=== PATIENT | female | born 1955 | race Caucasian/White ===

== ENCOUNTER 2017-06-23 09:57 | Day surgery (SDC) | payer BC ==
[2017-06-22 09:34] VITALS: BMI 21.1
[~2017-06-23 09:57] MED LIST: LACTATED RINGERS 1,000 ML IV SCH; LIDOCAINE 1% 20 ML VIAL (10MG/ML) FOR IV START INTRADERMA PRN
[2017-06-23 10:19] VITALS: TEMP 98
[2017-06-23] MEDS ORDERED: LACTATED RINGERS 1,000 ML IV ONE (10:27)
[2017-06-23] MEDS ORDERED: PROPOFOL 10 MG/ML 20 ML VIAL IV ONE (11:15)
--- NOTE | 2017-06-23 11:47 | P.PCN ---
Date of Procedure: 06/23/17 Preoperative Diagnosis: Postoperative Diagnosis: Procedure(s) Performed: Procedure: Colonoscopy and polypectomy. Preoperative diagnosis: Screening for neoplasia. Postoperative diagnosis: Multiple small polyps snared but no large polyps or cancer. Preparation: HalfLytely prep. Sedation: Was provided by anesthesia. Brief clinical history: The patient is a 62-year-old female who is referred for this evaluation for screening for neoplasia age being her risk factor. She had an exam more than 10 years ago. At this time, she has no abdominal complaints, bleeding or anemia. Procedure: With the patient on her left lateral decubitus position and after informed consent and adequate sedation, the perianal area was inspected and it did not show any fissures or fistulas. There were no masses felt on digital rectal examination. The Olympus CFQ 160L video colonoscope was then inserted in the rectum in the usual fashion and advanced to the cecum. There were 4 small polyps noted two around the hepatic flexure and two in the proximal right colon which were snared and retrieved by suction. No large polyps or cancer. No obvious diverticular disease or other pathology. I retroflexed the endoscope in the rectum before the endoscope was withdrawn. The patient tolerated the procedure well. Plan: The patient was reassured. Will await pathology results. I anticipate repeating this exam in 3-5 years. She will follow-up with you as planned. Implants: Indications for Procedure: Operative Findings: Description of Procedure:
[2017-06-23 11:53] VITALS: RESP 16
[2017-06-23 12:18] VITALS: BP 124/81; PULSE 61
== END 2017-06-23 12:14 | disposition home or self-care (01) ==
LOC: ORWHC2ENDO 09:57 → MERGE 12:20
DX: Z12.11 Encounter for screening for malignant neoplasm of colon (principal); D12.3 Benign neoplasm of transverse colon; Z86.718 Personal history of other venous thrombosis and embolism; J45.909 Unspecified asthma, uncomplicated; Z87.891 Personal history of nicotine dependence; E07.9 Disorder of thyroid, unspecified
CPT/HCPCS: 88305; 45385; J2704

== ENCOUNTER 2022-01-02 05:51 | Day surgery (SDC) | payer BC, MEDICARE ==
[2021-12-26 12:22] VITALS: BMI 21.4
--- NOTE | 2022-01-01 09:12 | P.HPIHPCON ---
History of Present Illness H&P Date: 01/01/22 Chief Complaint: pelvic organ prolapse This is a 66 yo female with hx of stage III rectocele option of observation, vaginal repair, and a robotic sacralcolpopexy was discussed with her in detail. Discussed with her the risk and benefit of each approach. She agreed to pr oceed with a robotic sacral colpopexy. Discussed with her we would be using mesh, discussed the risk which includes but not limited to bleeding, infection, mesh erosion through the vagina, bladder, and rectum, potential of recurrence of the cystocele, and persistent symptoms. discussed the risk of stress urinary incontinence postoperatively.Discussed also with her risk from anesthesia. She understood all the risk and agreed to proceed with robotic sacral colpopexy Consent for Procedure: I have explained the operation/procedure to the patient, including the risks, b enefits, side effects, alternative therapies (including not receiving the proposed treatment or service), the likelihood of the patient achieving his/her goals, and potential recuperation problems for the procedure/sedation/analgesia, as well as any blood products, if indicated. I also explained to the patient the risks, benefits and side effects of the alternatives, as well as the risks related to not receiving the proposed procedure, care, treatment, or services. Past Medical History Past Medical History: Asthma, Deep Vein Thrombosis (DVT), Thyroid Disorder Additional Past Medical History / Comment(s): CHILDHOOD ASTHMA, HX DVT LEFT LEG (12-13 YRS AGO)., PT STATES BLADDER & RECTUM PROLAPSE. History of Any Multi-Drug Resistant Organisms: None Reported Past Surgical History: Appendectomy, Tonsillectomy, Tubal Ligation Additional Past Surgical History / Comment(s): OVARIAN CYST. Past Anesthesia/Blood Transfusion Reactions: No Reported Reaction Past Psychological History: No Psychological Hx Reported Smoking Status: Current every day smoker Past Alcohol Use History: Daily Additional Past Alcohol Use History / Comment(s): SMOKES 1 PPD., STARTED SMOKING AT AGE 18. QUIT ALCOHOL OCTOBER 2021 Past Drug Use History: None Reported - Past Family History Mother Family Medical History: No Reported History Medications and Allergies Home Medications Medication Instructions Recorded Confirmed Type Levothyroxine Sodium [Synthroid] 100 mcg PO DAILY 06/22/17 12/26/21 History Allergies Allergy/AdvReac Type Severity Reaction Status Date / Time No Known Allergies Allergy Verified 06/22/17 09:12 Surgical - Exam - General no distress, no pain - Eyes normal ocular movement - ENT normal nares, normal mucosa - Respiratory normal expansion, normal respiratory effort - Abdomen Abdomen: soft, non tender - Psychiatric oriented to time, oriented to person, oriented to place Assessment and Plan Assessment: -OR robotic Sacrocolpoexy with combined hysterctomy by DOG WARDEN
--- NOTE | 2022-01-01 17:51 | P.HPOB ---
History of Present Illness H&P Date: 01/01/22 Chief Complaint: prolapse 66 year old presents for [facility] BSO by myself and sacrocolpopexy with dr Holly. Review of Systems All systems: negative Constitutional: Denies chills, Denies fever Eyes: denies blurred vision, denies pain Ears, nose, mouth and throat: Denies headache, Denies sore throat Cardiovascular: Denies chest pain, Denies shortness of breath Respiratory: Denies cough Gastrointestinal: Denies abdominal pain, Denies diarrhea, Denies nausea, Denies vomiting Genitourinary: Denies dysuria, Denies hematuria Musculoskeletal: Denies myalgias Integumentary: Denies pruritus, Denies rash Neurological: Denies numbness, Denies weakness Psychiatric: Denies anxiety, Denies depression Endocrine: Denies fatigue, Denies weight change Past Medical History Past Medical History: Asthma, Deep Vein Thrombosis (DVT), Thyroid Disorder Additional Past Medical History / Comment(s): CHILDHOOD ASTHMA, HX DVT LEFT LEG (12-13 YRS AGO)., PT STATES BLADDER & RECTUM PROLAPSE. History of Any Multi-Drug Resistant Organisms: None Reported Past Surgical History: Appendectomy, Tonsillectomy, Tubal Ligation Additional Past Surgical History / Comment(s): OVARIAN CYST. Past Anesthesia/Blood Transfusion Reactions: No Reported Reaction Past Psychological History: No Psychological Hx Reported Smoking Status: Current every day smoker Past Alcohol Use History: Daily Additional Past Alcohol Use History / Comment(s): SMOKES 1 PPD., STARTED SMOKING AT AGE 18. QUIT ALCOHOL OCTOBER 2021 Past Drug Use History: None Reported - Past Family History Mother Family Medical History: No Reported History Medications and Allergies Home Medications Medication Instructions Recorded Confirmed Type Levothyroxine Sodium [Synthroid] 100 mcg PO DAILY 06/22/17 12/26/21 History Allergies Allergy/AdvReac Type Severity Reaction Status Date / Time No Known Allergies Allergy Verified 06/22/17 09:12 Exam Osteopathic Statement: *. No significant issues noted on an osteopathic structural exam other than those noted in the History and Physical/Consult. Heart: Regular rate and rhythm Lungs: Clear to auscultation bilaterally Abdomen: Soft, nontender Extremities: Negative Homans sign Assessment and Plan (1) Pelvic organ prolapse quantification stage 3 cystocele Status: Acute Code(s): N81.10 - CYSTOCELE, UNSPECIFIED SNOMED Code(s): 396105384 Plan: 1. TLH BSO with da rayshawn. Will undergo prolapse procedure with Dr Holly when my portion is complete.
[~2022-01-02 05:51] MED LIST changes: +DEXAMETHASONE SOD PHOSPHATE 4 MG/ML 1 ML VIAL IV ONE; +HEPARIN SODIUM,PORCINE/PF 5,000 UNIT/0.5 ML SYRINGE SQ PRN; -LACTATED RINGERS 1,000 ML IV SCH; +LIDOCAINE 1% (10MG/ML) FOR IV START INTRADERMA PRN; -LIDOCAINE 1% 20 ML VIAL (10MG/ML) FOR IV START INTRADERMA PRN; +MIDAZOLAM 2 MG/2 ML VIAL IV PRN; +ONDANSETRON 4 MG/2 ML VIAL IVP ONE
[2022-01-02] MEDS: LACTATED RINGERS 1,000 ML IV SCH (06:21)
[2022-01-02] MEDS ORDERED: LIDOCAINE 1% INJ 10MG/ML (20 ML MDV) ONE ×2 (06:29→07:35)
[2022-01-02] MEDS ORDERED: fentaNYL (PF) 50 MCG/ML 2 ML AMP IVP ONE (07:13)
[2022-01-02] MEDS ORDERED: MIDAZOLAM 2 MG/2 ML VIAL IVP ONE (07:13)
[2022-01-02] MEDS ORDERED: GLYCOPYRROLATE 0.2 MG/ML 2 ML VIAL ONE (07:35)
[2022-01-02] MEDS ORDERED: SUCCINYLCHOLINE CHLORIDE 100 MG/5 ML SYR IV ONE (07:35)
[2022-01-02] MEDS ORDERED: PHENYLEPHRINE-0.9% NACL SYG 1,000 MCG/10 ML SYRINGE ONE (07:35)
[2022-01-02] MEDS ORDERED: fentaNYL (PF) 50 MCG/ML 2 ML AMP ONE (07:35)
[2022-01-02] MEDS ORDERED: NEOSTIGMINE 1 MG/ML 10 ML VIAL ONE (07:35)
[2022-01-02] MEDS ORDERED: MIDAZOLAM 2 MG/2 ML VIAL ONE (07:35)
[2022-01-02] MEDS ORDERED: PROPOFOL 10 MG/ML 20 ML VIAL IV ONE (07:35)
[2022-01-02] MEDS ORDERED: HYDROmorphone (PF) 1 MG/ML ONE (07:35)
[2022-01-02] MEDS ORDERED: ROCURONIUM 10 MG/ML (5 ML VIAL) IV ONE (07:35)
[2022-01-02] MEDS ORDERED: LACTATED RINGERS 1,000 ML IV ONE ×2 (07:42→10:30)
[2022-01-02] MEDS ORDERED: BUPIVACAINE (PF) 0.5% 30 ML VIAL SQ ONE ×2 (07:59→11:17)
--- NOTE | 2022-01-02 09:31 | P.ANPRN ---
Procedure Note - Anesthesia - Nerve Block Performed Bilateral Erector Spinae Single Time Out Performed: Yes (0712) Date of Procedure: 01/02/22 Procedure Start Time: 07:13 Procedure Stop Time: 07:18 Location of Patient: Phase I Indication: Acute Post-Operative Pain, Requested by Surgeon Specifically requested for management of pain by DrArlene: Linda Lin Sedation Type: Sedate with meaningful contact maintained Preparation: Sterile Prep Position: Prone Catheter: None Needle Types: Pajunk Needle Gauge: 21 (100mm) Ultrasound used to visualize needle placement: Yes Ultrasound used to observe medication spread: Yes Injectate: 0.5% Ropivacaine (see comment for volume) (15cc + 15cc nacl pf) Blood Aspirated: No Pain Paresthesia on Injection Noted: No Resistance on Injection: Normal Image Stored and Saved: Yes Events: Uneventful and Well Tolerated
--- NOTE | 2022-01-02 10:41 | P.OP ---
Date of Procedure: 01/02/22 Preoperative Diagnosis: 1. pelvic organ prolapse Postoperative Diagnosis: 1. pelvic organ prolapse Procedure(s) Performed: Total laparoscopic hysterectomy and bilateral salpingo-oophorectomy using da Tanika Anesthesia: ANN Surgeon: Linda Lin Radio Message Router #1: Adriane Celis Estimated Blood Loss (ml): 50 IV fluids (ml): 1,000 Urine output (ml): 200 Pathology: other (Uterus, cervix, bilateral tubes and ovaries) Condition: stable Description of Procedure: Patient taken the operating room where general anesthesia was obtained without difficulty. She is prepped and draped in normal sterile fashion dorsal lithotomy position, legs placed in the Po stirrups. Weighted speculum placed in the vagina and the anterior lip the cervix was grasped with single-tooth tenaculum. The uterus sounded to 6 cm and the cervix diameter was 3 cm. The appropriate manipulator tip and ring were placed on the Abigail manipulator. The Abigail manipulator was then placed in the uterus. Perez catheter was also placed. Attention was then turned to the abdomen and gloves were changed. A 5 mm supraumbilical incision was made the scalpel and a 5 mm optical trocar was placed under direct visualization. 10 cm to the right of this and 2 cm down a 5 mm incision was made and 8 mm da Tanika port was placed under direct visualization. Same measurements on the opposite side of the patient's abdomen, the 5 mm incision was made and 8 mm da Tanika port was placed under direct visualization. In the left upper quadrant a 10 mm incision was made and a 10 mm optical trocar was placed under direct visualization. The 5 mm optical trocar was then replaced with the 8 mm da Tanika camera port. The robot was docked on patient's right side. The camera was introduced and then the monopolar curved scissor and [place] bipolar placed under direct visualization. I broke scrub and went to the physician console. The left infundibulopelvic ligament was cauterized with the [place] bipolar and cut with monopolar curved scissors. The left round ligament was cauterized with the [place] bipolar and cut with monopolar curved scissors. The posterior leaf of the broad ligament was taken down using the monopolar curved scissors. Anterior leaf of the broad ligament was then taken down using the monopolar curved scissors. The uterine artery was cauterized with the [place] bipolar and cut with monopolar curved scissors. The bladder flap was then started using the monopolar curved scissors. Attention was then turned to the right side of the patient's anatomy and the right infundibular pelvic ligament was cauterized with the [place] bipolar and cut with monopolar curved scissors. The right round ligament was cauterized with the [place] bipolar and cut with monopolar curved scissors. Posterior leaf of the broad ligament was taken down using the monopolar curved scissors and the anterior leaf was taken down using the monopolar curved scissors. The uterine artery was cauterized the [place] bipolar cut with monopolar curved scissors. The bladder flap was then finished on this side. Anterior colpotomy was made using the monopolar curved scissors. The rest of the uterus was from the vaginal cuff by following the ring around with the monopolar curved scissors through the uterosacral ligaments back to the anterior portion. Once the uterus and cervix were amputated they were pulled through the vaginal cuff. Hemostasis was assured. The instruments were changed for the Cardier forcep and the pushpa suture cut. The vaginal cuff was then closed using 2-O stratafix barbed suture in a running fashion. Hemostasis was again assured and the pelvis was irrigated. I then turned the case over to Dr. Holly who plans to do a sacral colpopexy. Patient with in stable condition on I left the room.
[2022-01-02] MEDS: HYDROmorphone 0.5 MG/0.5 ML SYRINGE IVP PRN ×2 (11:40→11:50)
[2022-01-02] MEDS: LEVOTHYROXINE 100 MCG TAB PO SCH (13:25)
[2022-01-02] MEDS: KETOROLAC 30 MG/ML 1 ML VIAL IVP SCH ×2 (13:36→20:28)
[2022-01-02] MEDS: D5-0.45% NACL WITH KCL 20MEQ/L 1,000 ML IV SCH ×3 (14:28→22:34)
[2022-01-02 23:05] VITALS: RESP 16
[2022-01-03] MEDS: KETOROLAC 30 MG/ML 1 ML VIAL IVP SCH ×2 (03:17→05:40)
--- NOTE | 2022-01-03 07:44 | P.DS ---
Providers Expected date of discharge: 01/03/22 Attending physician: Linda Lin Primary care physician: Triston Lord - Discharge Diagnosis(es) (1) Pelvic organ prolapse quantification stage 3 cystocele Current Visit: No Status: Resolved (2) Status post robot-assisted surgical procedure Current Visit: Yes Status: Acute Hospital Course: Patient was suffering from pelvic organ prolapse. She underwent a total laparoscopic hysterectomy with bilateral salpingo-oophorectomy using da Tanika by myself, and then a sacral colpopexy by Dr. Holly. Postoperatively her course was uncomplicated. She denies nausea, vomiting, chest pain, shortness of breath or calf pain. She is voiding and moving without difficulty and tolerating regular diet. Patient will be discharged home post operative day #1 in stable condition to follow-up with me in 3 weeks. Plan - Discharge Summary New Discharge Prescriptions: New Acetaminophen-Codeine 300-30mg [Tylenol #3] 1 - 2 tab PO Q6H PRN #20 tablet PRN Reason: Pain Ibuprofen [Motrin] 600 mg PO Q6HR PRN #40 tab PRN Reason: Mild Pain Or Fever >= 100.5 No Action Levothyroxine Sodium [Synthroid] 100 mcg PO DAILY Cephalexin [Keflex] 500 mg PO Q12HR Discharge Medication List Levothyroxine Sodium [Synthroid] 100 mcg PO DAILY 06/22/17 [History] Cephalexin [Keflex] 500 mg PO Q12HR 01/02/22 [History] Acetaminophen-Codeine 300-30mg [Tylenol #3] 1 - 2 tab PO Q6H PRN #20 tablet 01/03/22 [Rx] Ibuprofen [Motrin] 600 mg PO Q6HR PRN #40 tab 01/03/22 [Rx] Discharge Disposition: HOME SELF-CARE
[2022-01-03] MEDS: LEVOTHYROXINE 100 MCG TAB PO SCH (08:21)
[2022-01-03 08:23] VITALS: BP 115/63; PULSE 63; TEMP 98.3
[2022-01-03] MEDS: LACTATED RINGERS 1,000 ML IV SCH (08:26)
--- NOTE | 2022-01-03 09:48 | P.PN ---
Subjective Progress Note Date: 01/03/22 Principal diagnosis: POD #1, s/p robotic-assisted laparoscopic hysterectomy and BSO with sacral colpopexy The patient underwent an uncomplicated sacral colpopexy yesterday at the time of her robotic hysterectomy. She reports incisional discomfort this morning but is otherwise doing well. She is afebrile with stable vital signs. Her Perez catheter was removed, and she has voided without difficulty. Objective - Vital Signs Vital signs: Vital Signs Temp 99.3 F 01/02/22 23:04 Pulse 83 01/02/22 23:04 Resp 16 01/02/22 23:04 BP 98/54 01/02/22 23:04 Pulse Ox 93 L 01/02/22 23:04 Intake & Output 01/02/22 01/02/22 01/03/22 06:59 18:59 06:59 Intake Total 800 2050 500 Output Total 350 Balance 800 1700 500 Weight 69.9 kg 69.9 kg Intake: IV 800 2050 Oral 500 Output: Urine 300 Estimated Blood Loss 50 Other: Voiding Method Indwelling Catheter # Voids 0 - Constitutional General appearance: Present: average body habitus, cooperative - Gastrointestinal Gastrointestinal Comment(s): Soft, non-distended. Incisions clean and dry. - Psychiatric Psychiatric: Present: A&O x's 3, appropriate affect Assessment and Plan (1) Pelvic organ prolapse quantification stage 3 cystocele Current Visit: No Status: Resolved Code(s): N81.10 - CYSTOCELE, UNSPECIFIED SNOMED Code(s): 341483171 Plan: The patient is doing well and will be discharged home this morning. Postvoid residual will be checked first to assess bladder emptying.
== END 2022-01-03 11:54 | disposition home or self-care (01) ==
LOC: OR 05:51 → 4FBP 11:50 → OR 01-03 11:54
PROVIDERS: ATTEND Obstetrics & Gynecology
DX: N81.89 Other female genital prolapse (principal); J45.909 Unspecified asthma, uncomplicated; Z86.718 Personal history of other venous thrombosis and embolism; F17.210 Nicotine dependence, cigarettes, uncomplicated
CPT/HCPCS: 58571; S2900; 64999; 86850; 86900; 86901; 88305

== ENCOUNTER → 2022-07-31 | Outpatient (CLI) | payer MEDICARE ==
--- NOTE | 2022-07-31 16:52 | US ---
EXAMINATION TYPE: US kidneys/renal and bladder DATE OF EXAM: 07/31/2022 COMPARISON: NONE CLINICAL HISTORY: R31.1 Microhematuria. Microhematuria. Hx procedure on bladder. EXAM MEASUREMENTS: Right Kidney: 11.4 x 5.8 x 4.0 cm Left Kidney: 11.4 x 5.4 x 4.9 cm Right Kidney: Two anechoic areas seen, larger area seen laterally and measures: 4.1 x 4.2 x 3.7 cm. F indings suggestive for cysts. Septated anechoic area seen at mid: 1.5 x 1.4 x 2.4 cm. Left Kidney: No hydronephrosis or masses seen Bladder: Appears anechoic Bilateral Jets seen: Yes IMPRESSION: 1. Right renal cysts. Follow-up is recommended.
== END | disposition home or self-care (01) ==
LOC: RADUSWWP 12:48
PROVIDERS: ATTEND Urology
DX: N28.1 Cyst of kidney, acquired (principal)
CPT/HCPCS: 76770

== ENCOUNTER → 2022-08-29 | Outpatient (CLI) | payer MEDICARE ==
--- NOTE | 2022-08-30 02:47 | MR ---
EXAMINATION TYPE: MR kidney wo/w con DATE OF EXAM: 08/29/2022 COMPARISON: Renal ultrasound exam 07/31/2022 HISTORY: Right renal mass. CONTRAST: Standard multiplanar, multisequence MRI departmental protocol images were obtained without contrast a nd with 7 mL intravenous Gadavist gadolinium contrast. The lung bases are clear of pleural fluid. There is a 2 cm cyst in the left lobe of the liver. The bi le ducts are nondilated. Spleen is intact. No evidence of pancreatic mass. The pancreatic duct appear s normal. There is no adrenal mass. Kidneys have normal size. There are multiple right-sided renal cortical cys ts that measure up to 4.3 cm. No evidence of a solid renal mass. No hydronephrosis. Ureters are not d ilated. No sign of retroperitoneal adenopathy. The contrast images show normal renal enhancement. No pathologic enhancement. There is normal enhance ment of the portal venous system. No ascites. No signs of bowel obstruction. IMPRESSION: Possible right-sided renal cortical cysts. No suspicious renal mass. No renal obstruction. Small left hepatic lobe cyst.
== END | disposition home or self-care (01) ==
LOC: RADMRIMAIN 17:15
PROVIDERS: ATTEND Urology
DX: D41.01 Neoplasm of uncertain behavior of right kidney (principal); K76.89 Other specified diseases of liver
CPT/HCPCS: 74183; A9585